=== PATIENT | male | born 1955 | race African-American/Black ===

== ENCOUNTER 2021-11-27 00:21 | Emergency (ER) | payer MEDICARE, MEDICAID ==
[~2021-11-27] VITALS: Ht 182.9 cm; Wt 100.0 kg
[2021-11-27] MEDS ORDERED: FUROSEMIDE 100MG/10ML VIAL IVP ONE (00:45)
[2021-11-27] MEDS ORDERED: ASPIRIN 81MG TABLET PO ONE (00:45)
[2021-11-27 09:02] LABS: CLARITY URINE CLEAR (CLEAR); COLOR URINE DARK YELLOW (YELLOW); KETONES URINE TRACE (NEGATIVE); LEUKOCYTE ESTERASE URINE NEGATIVE (NEGATIVE); NITRITE URINE NEGATIVE (NEGATIVE); OCCULT BLOOD URINE NEGATIVE (NEGATIVE); PH URINE 5.5 (4.5-8.0); PROTEIN URINE 1+ (NEGATIVE); SPECIFIC GRAVITY URINE 1.023 (1.005-1.030)
[2021-11-27 09:23] LABS: BASOPHILS % 0.3 % (0.0-2.0); EOSINOPHILS % 0.8 % (0.0-5.0); HEMATOCRIT. 33.5 % (42.0-52.0); HEMOGLOBIN. 11.5 g/dL (14.0-18.0); LYMPHOCYTES % 17.3 % (20.0-50.0); MEAN CORPUSCULAR HEMOGLOBIN 33.5 pg (28.0-32.0); MEAN CORPUSCULAR VOLUME 97.8 fL (80.0-94.0); MEAN PLATELET VOLUME 7.2 fl (7.4-10.4); MONOCYTES % 14.8 % (2.0-8.0); NEUTROPHILS % 66.8 % (40.0-76.0); PLATELET 260 x1000/uL (130-400); RED BLOOD CELL COUNT 3.43 mill/uL (4.7-6.1); RED CELL DISTRIBUTION WIDTH 13.2 % (11.6-14.6)
[2021-11-27 09:32] LABS: ETHANOL BLOOD < 10 mg/dL
[2021-11-27 09:34] LABS: CHLORIDE 111 mEq/L (98-107)
[2021-11-27 09:37] LABS: *BARBITURATES SCREEN URINE NEGATIVE (NEGATIVE); CANNABINOID URINE SCREEN PRESUMTIVE POSITIVE (NEGATIVE)
[2021-11-27 09:38] LABS: *AMPHETAMINES SCREEN URINE NEGATIVE (NEGATIVE); *COCAINE SCREEN URINE PRESUMTIVE POSITIVE (NEGATIVE)
[2021-11-27 09:39] LABS: *BENZODIAZEPINES SCREEN URINE NEGATIVE (NEGATIVE); METHADONE URINE SCREEN NEGATIVE (NEGATIVE); OPIATES URINE SCREEN NEGATIVE (NEGATIVE); PHENCYCLIDINE URINE SCREEN NEGATIVE (NEGATIVE)
[2021-11-27] MEDS ORDERED: TOPUD PO (11:02)
[2021-11-27 11:09] VITALS: BP 121/70
== END 2021-11-27 11:26 | disposition home or self-care (01) ==
LOC: ER 00:21
DX: R05.9 Cough, unspecified (principal); F14.10 Cocaine abuse, uncomplicated; F12.10 Cannabis abuse, uncomplicated; I50.9 Heart failure, unspecified; Z20.822 Contact with and (suspected) exposure to COVID-19
CPT/HCPCS: 36415; 80053; 80305; 80320; 81003; 83880; 84484; 85025; 87426; 87804; 99283; G0480